=== PATIENT | female | born 1975 | race Two or more races ===

== ENCOUNTER 2024-09-30 07:01 | Emergency (ER) | payer OTHER ==
[~2024-09-30] VITALS: Ht 149.9 cm; Wt 72.6 kg
[2024-09-30] MEDS ORDERED: PROAIR RESPICL90 MCG IH (07:34)
[2024-09-30] MEDS ORDERED: LEVALBUTEROL HCL 1.25 MG/3 ML SOLUTION IH STA (08:32)
[2024-09-30] MEDS ORDERED: BUDESONIDE 0.5 MG/2 ML AMPUL.NEB IH STA (08:33)
[2024-09-30] MEDS ORDERED: METHYLPREDNISOLONE SOD SUCC 125 MG VIAL IV STA (08:33)
[2024-09-30 09:04] LABS: HEMATOCRIT 43.1 % (36.0-45.00); HEMOGLOBIN 14.4 g/dL (12.0-15.00); MEAN CELL VOLUME 92.3 fL (80.00-100.00); MEAN CORPUSCULAR HEMOGLOBIN 30.8 pg (27.00-32.0); MEAN CORPUSCULAR HGB CONC 33.4 g/dl (32.0-36.0); PLATELET COUNT 338 K/uL (150-450); RED BLOOD COUNT 4.67 M/uL (4.00-6.00); RED CELL DISTRIBUTION WIDTH 15.4 % (11.5-14.5)
[2024-09-30] MEDS ORDERED: MAGNESIUM SULFATE IN WATER 50 ML IV ONE (10:45)
== END 2024-09-30 13:59 | disposition home or self-care (01) ==
LOC: ER 07:03
PROVIDERS: General Practice
DX: J45.909 Unspecified asthma, uncomplicated (principal); Z88.0 Allergy status to penicillin; Z91.018 Allergy to other foods

== ENCOUNTER 2024-12-02 18:12 | Emergency (ER) | payer OTHER ==
[~2024-12-02] VITALS: Ht 149.9 cm; Wt 73.5 kg
[~2024-12-02 18:12] MED LIST: PROAIR RESPICL90 MCG IH
[2024-12-02] MEDS ORDERED: METHYLPREDNISOLONE SOD SUCC 125 MG VIAL IV STA ×2 (20:13→23:24)
[2024-12-02] MEDS ORDERED: MAGNESIUM SULFATE IN WATER 4 GM/100 ML PIGGYBACK IV STA (20:13)
[2024-12-02] MEDS ORDERED: IPRATROPIUM/ALBUTEROL SULFATE 3 ML AMPUL.NEB IH STA ×2 (20:14→23:24)
[2024-12-02] MEDS ORDERED: METHYLPREDNISOLONE SOD SUCC 125 MG VIAL ONE ×2 (20:25→23:34)
[2024-12-02] MEDS ORDERED: IPRATROPIUM/ALBUTEROL SULFATE 3 ML AMPUL.NEB IH ONE ×2 (20:57→23:34)
[2024-12-02] MEDS ORDERED: MAGNESIUM SULFATE 50% 1,000 MG/2 ML VIAL ONE (21:02)
[2024-12-02 21:23] LABS: HEMOGLOBIN 13.8 g/dL (12.0-15.00); MEAN CELL VOLUME 94.5 fL (80.00-100.00); MEAN CORPUSCULAR HGB CONC 32.8 g/dl (32.0-36.0); PLATELET COUNT 346 K/uL (150-450); RED BLOOD COUNT 4.45 M/uL (4.00-6.00); RED CELL DISTRIBUTION WIDTH 15.9 % (11.5-14.5)
[2024-12-02] MEDS ORDERED: levoFLOXacin IN DEXTROSE 5 % 5 MG/ML PIGGYBAG IV STA (23:23)
[2024-12-03] MEDS ORDERED: ALBUTEROL SULFATE 3 ML/2.5 MG AMPUL.NEB IH SCH (02:30)
[2024-12-03] MEDS ORDERED: ALBUTEROL SULFATE 3 ML/2.5 MG AMPUL.NEB IH ONE (02:52)
[2024-12-03] MEDS ORDERED: BUDESONIDE0.5 MG/2 M IH (03:21)
[2024-12-03] MEDS ORDERED: ZITHROMAX500 MG PO (03:21)
[2024-12-03] MEDS ORDERED: ZYNCOF 20-400120 ML PO (03:21)
== END 2024-12-03 03:33 ==
LOC: ER 18:15
DX: J45.901 Unspecified asthma with (acute) exacerbation (principal); J06.9 Acute upper respiratory infection, unspecified; Z91.018 Allergy to other foods; Z88.0 Allergy status to penicillin
CPT/HCPCS: 36415; 94640; 96365; 99284; J1956; J3475; J3490